=== PATIENT | female | born 1990 | race Caucasian/White ===

== ENCOUNTER 2017-10-20 23:53 | Emergency (ER) | payer SELFPAY ==
[2017-10-21 00:01] VITALS: RESP 16; TEMP 97.3
[2017-10-21] MEDS ORDERED: IBUPROFEN 600 MG TAB PO ONE ×3 (00:19→00:20)
[2017-10-21 01:21] VITALS: O2SAT 96
--- NOTE | 2017-10-21 01:34 | EDPHY ---
H & P Stated Complaint: R BARTON PAIN/FALL - Personal History LMP (Females 10-55): 1-7 Days Ago Current Tetanus Diphtheria and Acellular Pertussis (TDAP): Yes - Medical/Surgical History Hx Asthma: No Hx Chronic Respiratory Disease: No Hx Diabetes: No Hx Cardiac Disease: No Hx Renal Disease: No Hx Cirrhosis: No Hx Alcoholism: No Hx HIV/AIDS: No Hx Splenectomy or Spleen Trauma: No Other PMH: DENIES - Social History Smoking Status: Former smoker HPI/ROS: Chief complaint: Right lower leg injury History of present illness: This is a 27-year-old female who presents to the emergency department with a friend for right lower leg injury. Patient states she was standing, talking with friends when she slipped and fell onto the leg. Since then she has had pain in the right lower leg. It makes it very difficult to ambulate. She denies abnormal coolness or paresthesias in the leg. She denies open wounds that are new. She denies trauma to other parts of the body. (Kishore Harvey) - Physical Exam Exam: General Appearance: Alert, nontoxic. Eyes: Pupils equal and round no injection. Respiratory: Chest is non tender, lungs are clear to auscultation. Cardiovascular: Regular rate and rhythm. DP and PT pulses 2+. Musculoskeletal: Tenderness to the right lower leg. She does not want move the leg in the knee or ankle secondary to pain. She can move hip and toes well. Muscle compartments of the right leg are soft. She is moving all extremities without difficulty. Skin: There is a scabbed wound to the right lower anterior leg. She states this is an old wound. No acute wounds from this evening. It does appear old on evaluation. Neurological: Alert and oriented x4. Strength and sensation intact and symmetrical. (Kishore Harvey) Constitutional: Initial Vital Signs Temperature (C) 36.3 C 10/20/17 23:58 Heart Rate 84 10/20/17 23:58 Respiratory Rate 16 10/20/17 23:58 Blood Pressure 92/61 L 10/20/17 23:58 O2 Sat (%) 99 10/20/17 23:58 O2 Delivery Mode Room Air Allergies/Adverse Reactions: No Known Allergies Allergy (Unverified 10/20/17 23:58) Home Medications: Medication Instructions Recorded oxyCODONE/APAP 5/325 [Percocet 1 tab PO Q6H #12 tab 10/21/17 5/325 (*)] Medical Decision Making - Diagnostics Imaging: I viewed and interpreted images myself ED Course/Re-evaluation: Patient is seen under the supervision of my secondary supervising physician Dr. Caridad Schultz. Patient presents to the emergency department for a right leg injury. X-ray confirms a tibia and fibular fracture. There is a wound to her leg which she states is old, not new. This does not appear to be an open fracture. Compartments are soft. The leg is neurovascularly intact. Pain is controlled. I have consulted with on-call orthopedics Dr. Arita. He is comfortable with patient being discharged home in a posterior long leg splint and following up in clinic. Patient will be discharged home. Home care is discussed including pain management. She is provided with referral information to Orthopedics. Return precautions are given. (Kishore Harvey) PHYSICIAN DOCUMENTATION: The patient was evaluated and managed by the Physician Restaurant Attendant. My co- signature indicates that I have reviewed this chart and I agree with the findings and plan of care as documented. I am the secondary supervising physician. (Caridad Schultz) Differential Diagnosis: Included but not limited to contusion, sprain or strain, closed and open fracture, unlikely compartment syndrome (Kishore Harvey) - Data Points Medications Given: Discontinued Medications Ibuprofen (Motrin) 600 mg PO EDNOW ONE Stop: 10/21/17 00:21 Last Admin: 10/21/17 00:20 Dose: 600 mg Oxycodone/Acetaminophen (Percocet 5/325mg Prepack#4) 1 btl TAKEHOME EDNOW ONE Stop: 10/21/17 01:38 Last Admin: 10/21/17 02:04 Dose: 1 btl Departure - Departure Disposition: Home, Routine, Self-Care Clinical Impression: Leg fracture, right Qualifiers: Encounter type: initial encounter Fracture type: closed Qualified Code(s): S82.91XA - Unspecified fracture of right lower leg, initial encounter for closed fracture Condition: Good Instructions: Oxycodone/Acetaminophen (By mouth), Leg Fracture (ED), Splint Care (ED) Additional Instructions: Please call and arrange follow-up with orthopedics this Monday In regards to pain control see the following: Use ibuprofen [600] mg [3] times a day for the next 2-3 days for pain In addition You have been prescribed Percocet for pain. Percocet contains Tylenol, do not take extra Tylenol/acetaminophen/Apap with it. It is sedating. Ice the injury, 20 min on, 3 times daily for the next 3 days Elevate the injury as much as possible If symptoms worsen or new symptoms develop return to the emergency room for recheck Referrals: NONE *PRIMARY CARE P,. [Primary Care Provider] - As per Instructions Bennett Loomis MD [Medical Doctor] - As per Instructions Prescriptions: oxyCODONE/APAP 5/325 [Percocet 5/325 (*)] 1 tab PO Q6H #12 tab
[2017-10-21] MEDS ORDERED: OXYCODONE/APAP 5/325MG PREPACK#4 BTL TAKEHOME ONE (01:37)
[2017-10-21 02:04] VITALS: BP 98/42; PULSE 77
== END 2017-10-21 02:13 | disposition home or self-care (01) ==
DX: S82.301A Unspecified fracture of lower end of right tibia, initial encounter for closed fracture (principal); Z87.891 Personal history of nicotine dependence; W01.0XXA Fall on same level from slipping, tripping and stumbling without subsequent striking against object, initial encounter; Y93.89 Activity, other specified